=== PATIENT | female | born 1945 | race Caucasian/White ===

== ENCOUNTER 2018-04-08 10:13 | Inpatient (IN) | payer MEDICARE, OTHER ==
[~2018-04-08] VITALS: Ht 162.6 cm; Wt 49.0 kg
[2018-04-08] MEDS ORDERED: labetalol 20mg/4ml (5mg/ml) syringe IV ONE ×3 (10:35→12:35)
[2018-04-08 10:46] LABS: BASOPHILS % (AUTO) 0.6 % (0-1); EOSINOPHILS # (AUTO) 0.1 X10'3 (0-0.9); EOSINOPHILS % (AUTO) 1.7 % (0-6); HEMATOCRIT 42.7 % (35.0-45.0); HEMOGLOBIN 14.4 g/dl (12.0-16.0); LYMPHOCYTES # (AUTO) 1.2 X10'3 (1.1-4.8); LYMPHOCYTES % (AUTO) 18.7 % (21-51); MEAN CORPUSCULAR HEMOGLOBIN 28.1 PG (27.0-31.0); MEAN CORPUSCULAR HGB CONC 33.6 % (33.0-36.5); MEAN CORPUSCULAR VOLUME 83.7 FL (78-98); MEAN PLATELET VOLUME 7.5 FL (7.4-10.4); MONOCYTES # (AUTO) 0.3 X10'3 (0-0.9); MONOCYTES % (AUTO) 5.1 % (2-12); NEUTROPHILS # (AUTO) 4.6 X10'3 (1.8-7.7); NEUTROPHILS % (AUTO) 73.9 % (42-75); PLATELET COUNT 485 X10'3 (140-440); RED CELL DISTRIBUTION WIDTH 14.9 % (11.5-14.5); WHITE BLOOD COUNT 6.2 X10'3 (4.5-11.0)
[2018-04-08 10:54] LABS: CLARITY,URINE SLIGHTLY CLOUDY (Clear); COLOR,URINE YELLOW (Yellow); GLUCOSE, URINE NEGATIVE (Neg); KETONES,URINE NEGATIVE (Neg); LEUKOCYTE ESTERASE ,URINE NEGATIVE (Neg); NITRITES, URINE NEGATIVE (Neg); OCCULT BLOOD,URINE LARGE (Neg); PROTEIN,URINE TRACE mg/dl (Neg); UROBILINOGEN,URINE 0.2 E.U/dL (0.2-1.0)
[2018-04-08 10:56] LABS: PARTIAL THROMBOPLASTIN TIME 27 SECONDS (22-32); PROTHROMBIN TIME 10.2 SECONDS (9.0-12.0)
[2018-04-08 11:00] LABS: UA COLLECTION TYPE CLN CATCH MIDSTREAM
[2018-04-08 11:02] LABS: WBC,URINE 0-4 /HPF (0-4)
[2018-04-08 11:02] LABS: ALANINE AMINOTRANSFERASE 28 U/L (12-78); ALBUMIN 3.9 G/DL (3.4-5.0); ALKALINE PHOSPHATASE 142 IU/L (46-116); ANION GAP 11 (8-16); CALCIUM 9.6 MG/DL (8.5-10.1); CHLORIDE 101 MMOL/L (99-107); CREATININE 0.81 MG/DL (0.40-0.90); POTASSIUM 3.5 MMOL/L (3.5-5.1); SODIUM 139 MMOL/L (135-145); eGFR 70 ML/MIN
[2018-04-08 11:03] LABS: RBC,URINE 20-50 /HPF (0-2)
[2018-04-08 11:03] LABS: ALBUMIN/GLOBULIN RATIO 0.8 (1.1-1.5); ASPARTATE AMINO TRANSFERASE 18 U/L (10-37); BILIRUBIN,TOTAL 0.4 MG/DL (0.1-1.0); BLOOD UREA NITROGEN 12 MG/DL (7-18); BUN/CREATININE RATIO 14.8 (6.6-38.0); GLUCOSE 111 MG/DL (70-104)
[2018-04-08 11:04] LABS: SQUAMOUS EPITHELIAL CELL,UR FEW /LPF (FEW)
[2018-04-08 11:05] LABS: BACTERIA,URINE FEW /HPF (Neg); HYALINE CASTS 0-3 /LPF (NEGATIVE)
[2018-04-08] MEDS ORDERED: meclizine 12.5mg tablet PO ONE (11:20)
[2018-04-08] MEDS ORDERED: normal saline 1000ml 1,000 ML IV ONE (11:20)
[2018-04-08] MEDS ORDERED: OXYC-145 PO (11:26)
[2018-04-08] MEDS ORDERED: magnesium 4gm in 100ml NS 100 ML IV PRN (11:45)
[2018-04-08] MEDS ORDERED: magnesium hydroxide 30ml (MOM) UD suspension PO PRN (11:45)
[2018-04-08] MEDS ORDERED: ondansetron/PF 4mg/2ml inj IV PRN (11:45)
[2018-04-08] MEDS ORDERED: mag hydrox/Alum hydrox/simeth 30ml oral suspension PO PRN (11:45)
[2018-04-08] MEDS ORDERED: magnesium Cl slow-release 64mg tablet PO PRN (11:45)
[2018-04-08] MEDS ORDERED: potassium Cl 20 mEq SR tablet PO PRN ×2 (11:45)
[2018-04-08] MEDS ORDERED: potassium Cl 40MEQ/NS 500ml 500 ML IV PRN ×2 (11:45)
[2018-04-08] MEDS ORDERED: meclizine 12.5mg tablet PO PRN (11:45)
[2018-04-08] MEDS ORDERED: acetaminophen 325mg tablet PO PRN ×2 (11:45)
[2018-04-08] MEDS ORDERED: magnesium 1gm/100ml D5W IVPB 100 ML IV PRN (11:45)
[2018-04-08 12:18] LABS: HEMOGLOBIN A1C 5.6 % (4.5-6.2)
[2018-04-08] MEDS ORDERED: amLODIPine 5mg tablet PO ONE (12:35)
[2018-04-08] MEDS ORDERED: LORazepam 0.5 MG tablet PO PRN (17:00)
[2018-04-08 17:02] VITALS: BP 195/99
[2018-04-08 17:49] VITALS: BP 187/99
[2018-04-08] MEDS: lisinopril 20mg tablet PO SCH (17:58)
[2018-04-08 18:00] VITALS: BP 189/102
[2018-04-08] MEDS: hydrALAZINE 20mg/ml inj. IV SCH ×2 (20:00→20:52)
[2018-04-08] MEDS: oxyCODONE/APAP 5-325mg tablet PO SCH (20:51)
[2018-04-08] MEDS ORDERED: temazepam 15mg capsule PO PRN (21:00)
[2018-04-08 22:00] VITALS: BP_SYST 128; BP_SYST 131; BP_SYST 137; BP_DIAS 76; BP_DIAS 87; BP_DIAS 92
[2018-04-09 01:00] VITALS: BP 145/74
[2018-04-09] MEDS: hydrALAZINE 20mg/ml inj. IV SCH ×3 (01:00→14:22)
[2018-04-09] MEDS: oxyCODONE/APAP 5-325mg tablet PO SCH ×3 (01:00→14:00)
[2018-04-09 06:00] VITALS: BP 116/65
[2018-04-09 06:13] LABS: HEMATOCRIT 39.5 % (35.0-45.0); HEMOGLOBIN 13.1 g/dl (12.0-16.0); MEAN CORPUSCULAR HEMOGLOBIN 27.8 PG (27.0-31.0); MEAN CORPUSCULAR HGB CONC 33.1 % (33.0-36.5); MEAN PLATELET VOLUME 7.2 FL (7.4-10.4); PLATELET COUNT 483 X10'3 (140-440); RED BLOOD COUNT 4.71 X10'6 (4.20-5.60); RED CELL DISTRIBUTION WIDTH 14.7 % (11.5-14.5)
[2018-04-09 06:18] LABS: ALBUMIN 3.2 G/DL (3.4-5.0); ANION GAP 10 (8-16); CALCIUM 8.9 MG/DL (8.5-10.1); CHLORIDE 103 MMOL/L (99-107); CHOL/HDL RATIO 3.1 (0.00-4.99); CHOLESTEROL 141 MG/DL (0-200); CREATININE 0.99 MG/DL (0.40-0.90); HDL CHOLESTEROL 46 MG/DL (35-60); LDL CHOLESTEROL 87 MG/DL (50-100); MAGNESIUM 2.2 MG/DL (1.5-2.4); POTASSIUM 3.3 MMOL/L (3.5-5.1); SODIUM 141 MMOL/L (135-145); TOTAL CARBON DIOXIDE 27.9 MMOL/L (24-32); TRIGLYCERIDES 50 MG/DL (20-135); eGFR 55 ML/MIN
[2018-04-09 06:20] LABS: BLOOD UREA NITROGEN 14 MG/DL (7-18); BUN/CREATININE RATIO 14.1 (6.6-38.0); GLUCOSE 93 MG/DL (70-104); PHOSPHORUS 4.7 MG/DL (2.3-4.5)
[2018-04-09] MEDS ORDERED: K and/or MAG REPLACEMENT MC SCH (08:00)
[2018-04-09] MEDS ORDERED: aspirin 325mg tablet PO SCH (08:30)
[2018-04-09] MEDS: enoxaparin 40mg/0.4ml syringe SUBCUT SCH ×2 (09:29→09:53)
[2018-04-09] MEDS: lisinopril 20mg tablet PO SCH ×2 (09:30→09:52)
[2018-04-09] MEDS: amLODIPine 5mg tablet PO SCH ×2 (09:32→09:52)
[2018-04-09] MEDS ORDERED: MAGN500C16 PO (10:16)
[2018-04-09 11:00] VITALS: BP 125/73
[2018-04-09] MEDS ORDERED: ATI0.5T PO (13:57)
[2018-04-09] MEDS ORDERED: LISI-600 PO (13:57)
[2018-04-09] MEDS ORDERED: TEMA15CA PO (13:57)
[2018-04-09] MEDS ORDERED: ASPI-611 PO (13:59)
[2018-04-09 15:00] VITALS: BP 116/65
[2018-04-09] MEDS ORDERED: HYDR-4069 PO (16:03)
== END 2018-04-09 16:38 | disposition home or self-care (01) | DRG 305 ==
LOC: ER 10:14 → ED HOLD 11:41 → PCU 3S 17:05
PROVIDERS: ADMIT Family Medicine; ATTEND Family Medicine
DX: I16.0 Hypertensive urgency (principal); A69.20 Lyme disease, unspecified; F32.9 Major depressive disorder, single episode, unspecified; G89.29 Other chronic pain; M41.9 Scoliosis, unspecified; J44.9 Chronic obstructive pulmonary disease, unspecified; I12.9 Hypertensive chronic kidney disease with stage 1 through stage 4 chronic kidney disease, or unspecified chronic kidney disease; N18.9 Chronic kidney disease, unspecified; E87.6 Hypokalemia; F41.1 Generalized anxiety disorder; R31.9 Hematuria, unspecified; R79.89 Other specified abnormal findings of blood chemistry; Z87.891 Personal history of nicotine dependence
CPT/HCPCS: 36415; 70450; 70544; 70551; 71045; 76775; 80048; 80053; 80061; 81001; 83036; 83735; 84100; 84443; 84484; 85025; 85027; 85610; 85730; 93005; 93306; 93880; 96374; 97161; 99285; J0360; J1650; J3490; J7030; J8597